=== PATIENT | male | born 1990 | race Caucasian/White ===

== ENCOUNTER 2022-11-27 08:42 | Emergency (ER) | payer SELFPAY ==
[~2022-11-27] VITALS: Ht 162.6 cm; Wt 75.0 kg
[2022-11-27 08:44] VITALS: BP 163/99; PULSE 75; RESP 16; TEMP 97.4; O2SAT 99
== END 2022-11-27 10:15 | disposition home or self-care (01) ==
LOC: ER 08:42
DX: S82.002A Unspecified fracture of left patella, initial encounter for closed fracture (principal); F12.90 Cannabis use, unspecified, uncomplicated; V29.888A Rider (driver) (passenger) of other motorcycle injured in other specified transport accidents, initial encounter; Y93.89 Activity, other specified; Y92.89 Other specified places as the place of occurrence of the external cause; Y99.8 Other external cause status
CPT/HCPCS: 29530; 73564; 73590; 99284

== ENCOUNTER 2024-05-13 20:32 | Emergency (ER) | payer BC, OTHER ==
[~2024-05-13] VITALS: Ht 162.6 cm; Wt 79.5 kg
[2024-05-13 20:46] VITALS: BP 142/82; PULSE 80; RESP 16; TEMP 97.8; O2SAT 99
== END 2024-05-13 20:53 ==
LOC: ER 20:32
DX: Z00.00 Encounter for general adult medical examination without abnormal findings (principal); Z65.3 Problems related to other legal circumstances; F12.90 Cannabis use, unspecified, uncomplicated
CPT/HCPCS: 99283